=== PATIENT | male | born 1980 | race Caucasian/White ===

== ENCOUNTER 2021-08-15 17:55 | Emergency (ER) | payer BC ==
[~2021-08-15] VITALS: Ht 180.3 cm; Wt 100.1 kg
[2021-08-15 18:02] VITALS: BP 139/78
[2021-08-15] MEDS ORDERED: ASPIRIN CHEWABLE 81 MG TABLET. ONE (18:12)
--- NOTE | 2021-08-15 18:21 | EKG ---
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
[2021-08-15] MEDS ORDERED: ASPIRIN CHEWABLE 81 MG TABLET. PO ONE (18:30)
[2021-08-15 18:33] LABS: BASO % 0 % (0-3); EOS % 0 % (0-3); HEMATOCRIT 39.8 % (39.0-53.0); HEMOGLOBIN 13.3 g/dL (13.0-17.5); LYMPH # 2.5 x10^3/uL (1.0-4.8); LYMPH % 26 % (24-48); MEAN CORPUSCULAR HEMOGLOBIN 30 pg (25-35); MEAN CORPUSCULAR HGB CONC 34 g/dL (31-37); MEAN CORPUSCULAR VOLUME 89 fL (79-100); MONO # 0.9 x10^3/uL (0.0-1.1); MONO % 9 % (0-9); NEUT # 6.3 x10^3uL (1.8-7.7); NEUT % 64 % (31-73); PLATELET COUNT 291 x10^3/uL (140-400); RED BLOOD COUNT 4.49 x10^6/uL (4.30-5.70); RED CELL DISTRIBUTION WIDTH 13.8 % (11.5-14.5); WHITE BLOOD COUNT 9.8 x10^3/uL (4.0-11.0)
--- NOTE | 2021-08-15 18:44 | PHYS DOC ---
Past History Past Surgical History: No Surgical History General Adult EDM: Chief Complaint: CHEST PAIN HPI: HPI: 41-year-old male presents with chest pain. The patient has been working out for the last 5 or 6 weeks. He had a chest day yesterday and thought he was just sore. He has had a central chest tightness that was mild in the morning became more intense after lunch. It then faded away for couple hours and came back 8 out of 10 with radiation to his left shoulder 1 hour prior to arrival. The patient has not had chest pain like this before. No cardiac history. He takes lisinopril for hypertension. He has recently lost 15 pounds by improving his diet and working out. He did have some mild diaphoresis which has improved at this time. Denies shortness of breath, fever, chills. Review of Systems: Review of Systems: Constitutional: Denies fever or chills Eyes: Denies change in visual acuity HENT: Denies nasal congestion or sore throat Respiratory: Denies cough or shortness of breath Cardiovascular: Chest pain, diaphoresis GI: Denies abdominal pain, nausea, vomiting, bloody stools or diarrhea : Denies dysuria Musculoskeletal: Denies back pain or joint pain Integument: Denies rash Neurologic: Denies headache, focal weakness or sensory changes Endocrine: Denies polyuria or polydipsia Lymphatic: Denies swollen glands Psychiatric: Denies depression or anxiety Current Medications: Current Meds: Current Medications Medications (Trade) Dose Ordered Sig/Cece Start Time Stop Time Status Last Admin Dose Admin Aspirin (Aspirin Chewable) 324 mg 1X ONCE 08/15/21 18:30 08/15/21 18:31 UNV 08/15/21 18:28 324 MG Allergies: Allergies: Allergies Uncoded Allergies Type Severity Reaction Last Updated Verified ERYTHROMYCIN Allergy Unknown 08/15/21 Physical Exam: PE: Constitutional: Well developed, well nourished, no acute distress, non-toxic appearance. [] HENT: Normocephalic, atraumatic, bilateral external ears normal, oropharynx moist, no oral exudates, nose normal. [] Eyes: PERRLA, EOMI, conjunctiva normal, no discharge. [] Neck: Normal range of motion, no tenderness, supple, no stridor. [] Cardiovascular:Heart rate regular rhythm, no murmur [] Lungs & Thorax: Bilateral breath sounds clear to auscultation [] Abdomen: Bowel sounds normal, soft, no tenderness, no masses, no pulsatile masses. [] Skin: Warm, dry, no erythema, no rash. [] Back: No tenderness, no CVA tenderness. [] Extremities: No tenderness, no cyanosis, no clubbing, ROM intact, no edema. [] Neurologic: Alert and oriented X 3, normal motor function, normal sensory function, no focal deficits noted. [] Psychologic: Affect normal, judgement normal, mood normal. [] Current Patient Data: Labs: Laboratory Tests Test 08/15/21 18:01 White Blood Count 9.8 x10^3/uL (4.0-11.0) Red Blood Count 4.49 x10^6/uL (4.30-5.70) Hemoglobin 13.3 g/dL (13.0-17.5) Hematocrit 39.8 % (39.0-53.0) Mean Corpuscular Volume 89 fL (79-100) Mean Corpuscular Hemoglobin 30 pg (25-35) Mean Corpuscular Hemoglobin Concent 34 g/dL (31-37) Red Cell Distribution Width 13.8 % (11.5-14.5) Platelet Count 291 x10^3/uL (140-400) Neutrophils (%) (Auto) 64 % (31-73) Lymphocytes (%) (Auto) 26 % (24-48) Monocytes (%) (Auto) 9 % (0-9) Eosinophils (%) (Auto) 0 % (0-3) Basophils (%) (Auto) 0 % (0-3) Neutrophils # (Auto) 6.3 x10^3uL (1.8-7.7) Lymphocytes # (Auto) 2.5 x10^3/uL (1.0-4.8) Monocytes # (Auto) 0.9 x10^3/uL (0.0-1.1) Eosinophils # (Auto) 0.0 x10^3/uL (0.0-0.7) Basophils # (Auto) 0.0 x10^3/uL (0.0-0.2) Vital Signs: Vital Signs Date Time Temp Pulse Resp B/P (MAP) Pulse Ox O2 Delivery O2 Flow Rate FiO2 08/15/21 18:02 85 18 139/78 (98) 96 EKG: EKG: Sinus rhythm, rate 86, normal axis, narrow ST elevation in leads II and aVF. [] Radiology/Procedures: Radiology/Procedures: [] Impressions: Exam: Chest one view INDICATION: Chest TECHNIQUE: Frontal view of the chest Comparisons: None FINDINGS: The cardiomediastinal silhouette and pulmonary vessels are within normal limits. The lung and pleural spaces are clear. IMPRESSION: No acute cardiopulmonary process. Electronically signed by: Shandra Oleary MD (08/15/2021 8:00 PM) [facility] DICTATED AND SIGNED BY: SHANDRA OLEARY MD DATE: 08/15/211958 CC: PETERSON AUGUSTE DO; PCP,UNKNOWN ~ Heart Score: C/O Chest Pain: Yes HEART Score for Chest Pain: HEART Score for Chest Pain Response (Comments) Value History Moderately Suspicious 1 ECG Nonspecific Repolarizatio 1 Age < 45 0 Risk Factors 1 or 2 Risk Factors 1 Troponin < Normal Limit 0 Total 3 Risk Factors: Risk Factors: DM, Current or recent (<one month) smoker, HTN, HLP, family history of CAD, obesity. Risk Scores: Score 0 - 3: 2.5% MACE over next 6 weeks - Discharge Home Score 4 - 6: 20.3% MACE over next 6 weeks - Admit for Clinical Observation Score 7 - 10: 72.7% MACE over next 6 weeks - Early Invasive Strategies Course & Med Decision Making: Course & Med Decision Making Pertinent Labs and Imaging studies reviewed. (See chart for details) The patient's EKG does appear to have ST elevation in leads II and aVF. I sent an image of the EKG to do the imaging scheduler, Dr. Serra. He has advised that we wait for troponin result. The patient's labs are unremarkable. His troponin is negative. I will do a 2-hour repeat. The patient's repeat troponin has increased from 10-15. Repeat EKG is similar to previous with no significant changes. I will give the patient Flexeril for muscle tightness and spasms in the chest muscles. I will also discharge him with a prescription for the same. He is stable for discharge at this time. [] Dragon Disclaimer: Dragon Disclaimer: This electronic medical record was generated, in whole or in part, using a voice recognition dictation system. Departure Departure: Impression: Primary Impression: Chest pain Disposition: HOME / SELF CARE / HOMELESS Condition: STABLE Referrals: PCP,UNKNOWN (PCP) Patient Instructions: Chest Pain (Nonspecific), [facility] Cyclobenzaprine Hcl (CYCLOBENZAPRINE HCL) 10 Mg Tablet 1 TAB PO TID PRN for MUSCLE SPASMS, #30 TAB Prov: PETERSON AUGUSTE DO 08/15/21 PETERSON AUGUSTE DO Aug 15, 2021 18:44
[2021-08-15 18:45] LABS: CALCIUM 9.1 mg/dL (8.5-10.1); CREATININE 1.1 mg/dL (0.7-1.3); GFR 73.8; POTASSIUM 4.3 mmol/L (3.5-5.1)
[2021-08-15 19:00] LABS: ALBUMIN 3.9 g/dL (3.4-5.0); ALBUMIN/GLOBULIN RATIO 1.3 (1.0-1.7); TOTAL BILIRUBIN 0.6 mg/dL (0.2-1.0); TOTAL PROTEIN 6.8 g/dL (6.4-8.2)
--- NOTE | 2021-08-15 20:02 | RAD ---
Exam: Chest one view INDICATION: Chest TECHNIQUE: Frontal view of the chest Comparisons: None FINDINGS: The cardiomediastinal silhouette and pulmonary vessels are within normal limits. The lung and pleural spaces are clear. IMPRESSION: No acute cardiopulmonary process. Electronically signed by: Maryam Lyn MD (08/15/2021 8:00 PM) DANNY
[2021-08-15] MEDS ORDERED: CYCL10TA19 PO (20:56)
[2021-08-15] MEDS ORDERED: CYCLOBENZAPRINE 10 MG TABLET. PO ONE (21:30)
--- NOTE | 2021-08-15 22:28 | EKG ---
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
== END 2021-08-15 21:20 | disposition home or self-care (01) ==
LOC: ER 17:55
DX: R07.89 Other chest pain (principal); R61 Generalized hyperhidrosis
CPT/HCPCS: 36415; 71045; 80053; 84484; 85025; 93005; 99285